=== PATIENT | male | born 1985 | race African-American/Black ===

== ENCOUNTER 2017-07-20 10:10 | Emergency (ER) | payer OTHER ==
[~2017-07-20] VITALS: Ht 180.3 cm; Wt 80.0 kg
[2017-07-20 13:01] VITALS: BP 134/90
[2017-07-20] MEDS ORDERED: PROZAC10 MG PO (13:47)
[2017-07-20] MEDS ORDERED: GEODON40 MG PO (13:47)
[2017-07-20] MEDS ORDERED: VYVANSE20 MG PO (13:47)
[2017-07-20] MEDS ORDERED: GEODON20 MG PO (13:47)
[2017-07-20] MEDS ORDERED: VYVANSE50 MG PO (13:47)
== END 2017-07-20 14:21 | disposition home or self-care (01) ==
LOC: EME 10:10
DX: F20.9 Schizophrenia, unspecified (principal); Z76.0 Encounter for issue of repeat prescription; F90.9 Attention-deficit hyperactivity disorder, unspecified type; F32.9 Major depressive disorder, single episode, unspecified; F17.200 Nicotine dependence, unspecified, uncomplicated
CPT/HCPCS: 99281; 99283

== ENCOUNTER 2017-10-07 22:31 | Emergency (ER) | payer OTHER ==
[~2017-10-07] VITALS: Ht 180.3 cm; Wt 82.6 kg
[~2017-10-07 22:31] MED LIST: GEODON20 MG PO; GEODON40 MG PO; PROZAC10 MG PO; VYVANSE20 MG PO; VYVANSE50 MG PO
[2017-10-08] MEDS ORDERED: ATIVAN0.5 MG PO (00:33)
[2017-10-08 01:21] VITALS: BP 130/92
== END 2017-10-08 01:23 | disposition home or self-care (01) ==
LOC: EME 22:31
DX: F41.0 Panic disorder [episodic paroxysmal anxiety] (principal); F20.0 Paranoid schizophrenia; Z76.0 Encounter for issue of repeat prescription; F90.9 Attention-deficit hyperactivity disorder, unspecified type; F17.200 Nicotine dependence, unspecified, uncomplicated
CPT/HCPCS: 99281; 99285

== ENCOUNTER 2017-10-18 12:53 | Emergency (ER) | payer OTHER ==
[~2017-10-18] VITALS: Ht 180.3 cm; Wt 82.4 kg
[~2017-10-18 12:53] MED LIST changes: +ATIVAN0.5 MG PO
[2017-10-18] MEDS ORDERED: LISINOPRIL2.5 MG PO (16:05)
[2017-10-18] MEDS ORDERED: ATARAX,VISTARIL50 MG PO (16:05)
[2017-10-18 16:23] VITALS: BP 138/90
== END 2017-10-18 16:24 | disposition home or self-care (01) ==
LOC: EME 12:53
DX: Z76.0 Encounter for issue of repeat prescription (principal); F41.9 Anxiety disorder, unspecified; I10 Essential (primary) hypertension; I25.2 Old myocardial infarction; F41.0 Panic disorder [episodic paroxysmal anxiety]; F90.9 Attention-deficit hyperactivity disorder, unspecified type; F20.0 Paranoid schizophrenia; F17.210 Nicotine dependence, cigarettes, uncomplicated; Z91.041 Radiographic dye allergy status; Z91.013 Allergy to seafood
CPT/HCPCS: 99281; 99285; Q0177

== ENCOUNTER 2017-11-24 17:17 | Emergency (ER) | payer OTHER ==
[~2017-11-24] VITALS: Ht 180.3 cm; Wt 84.7 kg
[~2017-11-24 17:17] MED LIST changes: +ATARAX,VISTARIL50 MG PO; +LISINOPRIL2.5 MG PO
[2017-11-24] MEDS ORDERED: VYVANSE20 MG PO (19:30)
[2017-11-24] MEDS ORDERED: VYVANSE50 MG PO (19:30)
[2017-11-24] MEDS ORDERED: ATIVAN0.5 MG PO (19:30)
[2017-11-24] MEDS ORDERED: GEODON40 MG PO (19:30)
[2017-11-24] MEDS ORDERED: PROZAC10 MG PO (19:30)
[2017-11-24 19:43] VITALS: BP 132/99
== END 2017-11-24 19:45 | disposition home or self-care (01) ==
LOC: EME 17:17
DX: F32.9 Major depressive disorder, single episode, unspecified (principal); Z76.0 Encounter for issue of repeat prescription; Z91.14 Patient's other noncompliance with medication regimen; I25.2 Old myocardial infarction; I10 Essential (primary) hypertension; F17.200 Nicotine dependence, unspecified, uncomplicated
CPT/HCPCS: 99281; 99283